=== PATIENT | female | born 1935 | race Asian ===

== ENCOUNTER 2020-03-23 06:52 | Day surgery (SDC) | payer MEDICARE, MEDICAID ==
[2020-03-22 17:22] LABS: BASOPHILS # (AUTO) 0.1 X10'3 (0-0.2); BASOPHILS % (AUTO) 1.1 % (0-1); EOSINOPHILS # (AUTO) 0.3 X10'3 (0-0.9); EOSINOPHILS % (AUTO) 5.9 % (0-6); HEMATOCRIT 37.6 % (35.0-45.0); HEMOGLOBIN 12.4 g/dl (12.0-16.0); LYMPHOCYTES # (AUTO) 1.7 X10'3 (1.1-4.8); LYMPHOCYTES % (AUTO) 35.7 % (21-51); MEAN CORPUSCULAR HGB CONC 33.1 g/dL (33.0-36.5); MEAN CORPUSCULAR VOLUME 93.8 FL (78-98); MEAN PLATELET VOLUME 7.4 FL (7.4-10.4); MONOCYTES # (AUTO) 0.4 X10'3 (0-0.9); MONOCYTES % (AUTO) 8.5 % (2-12); NEUTROPHILS # (AUTO) 2.3 X10'3 (1.8-7.7); NEUTROPHILS % (AUTO) 48.8 % (42-75); PLATELET COUNT 160 X10'3 (140-440); RED BLOOD COUNT 4.01 X10'6 (4.20-5.60); RED CELL DISTRIBUTION WIDTH 13.5 % (11.5-14.5); WHITE BLOOD COUNT 4.8 X10'3 (4.5-11.0)
[2020-03-22 17:29] LABS: ALBUMIN 3.7 G/DL (3.4-5.0); ANION GAP 8 (8-16); BLOOD UREA NITROGEN 15 MG/DL (7-18); BUN/CREATININE RATIO 22.4 (6.6-38.0); CALCIUM 9.2 MG/DL (8.5-10.1); CHLORIDE 106 MMOL/L (99-107); CREATININE 0.67 MG/DL (0.40-0.90); GLUCOSE 165 MG/DL (70-104); POTASSIUM 3.5 MMOL/L (3.5-5.1); SODIUM 140 MMOL/L (135-145); TOTAL CARBON DIOXIDE 26.4 MMOL/L (24-32); eGFR 84 ML/MIN
[2020-03-22 17:34] LABS: PARTIAL THROMBOPLASTIN TIME 28 SECONDS (22-32)
[2020-03-23] VITALS (13 sets, daily range): BP systolic 85–166; BP diastolic 65–83
[~2020-03-23] VITALS: Ht 137.2 cm; Wt 51.3 kg
[2020-03-23] MEDS ORDERED: LORazepam 0.5 MG tablet PO PRN (07:15)
[2020-03-23] MEDS ORDERED: diphenhydrAMINE 25mg capsule PO PRN (07:15)
[2020-03-23] MEDS ORDERED: normal saline 1,000 ML IV SCH (07:15)
[2020-03-23] MEDS ORDERED: LOSA100T57 PO (07:30)
[2020-03-23] MEDS ORDERED: VITA-134 PO (07:30)
[2020-03-23] MEDS ORDERED: CYAN500T63 PO (07:30)
[2020-03-23] MEDS ORDERED: AMLO2.5T2 PO (07:30)
[2020-03-23] MEDS ORDERED: SIMV-45 PO (07:30)
[2020-03-23] MEDS ORDERED: IBUP-2697 PO (07:30)
[2020-03-23] MEDS ORDERED: CALC-1215 PO (07:30)
[2020-03-23] MEDS ORDERED: LORA-512 PO (07:30)
[2020-03-23] MEDS ORDERED: CARV6.253 PO (07:30)
[2020-03-23] MEDS ORDERED: GABA300C PO (07:30)
[2020-03-23] MEDS ORDERED: heparin 1,000unit/ml 10ml vial 10 ML ONE (09:37)
[2020-03-23] MEDS ORDERED: midazolam 2 mg/2 ml injection ONE (09:38)
[2020-03-23] MEDS ORDERED: fentaNYL/PF 50MCG/1 ML 2ML syringe ONE (09:38)
[2020-03-23] MEDS ORDERED: LIDOcaine 1% (10mg/ml)w/preservative injection 20ml MDV ONE (09:38)
[2020-03-23] MEDS ORDERED: nitroGLYCERIN-Tridil 50MG/D5W 250 ML IV ONE (09:38)
[2020-03-23] MEDS ORDERED: iohexol 350 MG/ML 50ML vial IV ONE (10:09)
[2020-03-23] MEDS ORDERED: iohexol 350MG/ML 100ml bottle IV ONE ×2 (10:09→10:40)
[2020-03-23] MEDS ORDERED: heparin 25,000 UNIT/250ml bag 250 ML IV ONE (10:41)
[2020-03-23] MEDS ORDERED: clopidogrel 300mg tablet ONE (11:13)
[2020-03-23] MEDS ORDERED: HYDROcodone/acetaminophen 10/325mg tab PO PRN ×2 (12:20)
[2020-03-23] MEDS ORDERED: acetaminophen 325mg tablet PO PRN ×2 (12:20)
[2020-03-23] MEDS ORDERED: proCHLORperazine 10 MG/2 ml inj IV PRN (12:20)
[2020-03-23] MEDS ORDERED: OXAZEpam 15mg capsule PO PRN (12:20)
[2020-03-23] MEDS ORDERED: cyclobenzaprine 10mg tablet PO PRN (12:20)
[2020-03-23] MEDS ORDERED: magnesium hydroxide 30ml (MOM) UD suspension PO PRN (12:20)
--- NOTE | 2020-03-23 19:14 | NUR ---
Problems reprioritized. Patient report given, questions answered & plan of care reviewed with Peggy JUSTIN.
[2020-03-23] MEDS ORDERED: docusate sod 100mg capsule PO SCH (20:00)
[2020-03-24] MEDS ORDERED: clopidogrel 75mg tablet PO SCH (08:00)
== END 2020-03-23 20:00 | disposition home or self-care (01) ==
LOC: SSTAY O 06:52
PROVIDERS: ATTEND Internal Medicine Cardiovascular Disease
DX: R94.39 Abnormal result of other cardiovascular function study (principal); I25.10 Atherosclerotic heart disease of native coronary artery without angina pectoris; I10 Essential (primary) hypertension; E78.49 Other hyperlipidemia; M19.90 Unspecified osteoarthritis, unspecified site; G62.9 Polyneuropathy, unspecified; Z79.899 Other long term (current) drug therapy; Z98.890 Other specified postprocedural states; Z90.49 Acquired absence of other specified parts of digestive tract; Z82.49 Family history of ischemic heart disease and other diseases of the circulatory system; Z79.01 Long term (current) use of anticoagulants
CPT/HCPCS: 36415; 80048; 85025; 85347; 85610; 85730; 93005; 93458; 99152; 99153; C1725; C1751; C1760; C1769; C1874; C1894; C9600; J1644; J2001; J2250; J3010; J7030; J7040; Q0163; Q9967; A4620; A5120; A6258; J3490

== ENCOUNTER 2021-04-20 11:14 | Day surgery (SDC) | payer MEDICARE, MEDICAID ==
[2021-04-17 17:10] LABS: BASOPHILS % (AUTO) 0.5 % (0-1); EOSINOPHILS # (AUTO) 0.2 X10'3 (0-0.9); EOSINOPHILS % (AUTO) 4.1 % (0-6); LYMPHOCYTES # (AUTO) 1.7 X10'3 (1.1-4.8); MEAN CORPUSCULAR HEMOGLOBIN 31.5 PG (27.0-31.0); MEAN CORPUSCULAR HGB CONC 32.5 g/dL (33.0-36.5); MEAN CORPUSCULAR VOLUME 96.9 FL (78-98); MONOCYTES # (AUTO) 0.3 X10'3 (0-0.9); NEUTROPHILS # (AUTO) 2.1 X10'3 (1.8-7.7); NEUTROPHILS % (AUTO) 48.4 % (42-75); PRE OP HEMATOCRIT 40.8 % (35.0-45.0); PRE OP HEMOGLOBIN 13.3 g/dL (12.0-16.0); PRE OP PLATELET COUNT 157 X10'3 (140-440); RED BLOOD COUNT 4.22 X10'6 (4.20-5.60); RED CELL DISTRIBUTION WIDTH 13.2 % (11.5-14.5)
[2021-04-17 17:25] LABS: PRE OP PROTIME 10.8 SECONDS (9.0-12.0)
[2021-04-17 17:26] LABS: ALKALINE PHOSPHATASE 121 IU/L (46-116); BLOOD UREA NITROGEN 15 MG/DL (7-18); BUN/CREATININE RATIO 16.9 (6.6-38.0); CALCIUM 9.3 MG/DL (8.5-10.1); CHLORIDE 104 MMOL/L (99-107); CREATININE 0.89 MG/DL (0.40-0.90); PRE OP ALT 23 U/L (30-65); PRE OP ANION GAP 9 (8-16); PRE OP AST 18 U/L (10-37); PRE OP BILIRUB, TOTAL 0.4 MG/DL (0.0-1.0); PRE OP GLUCOSE 133 MG/DL (70-104); PRE OP SODIUM 142 MMOL/L (135-145); TOTAL CARBON DIOXIDE 28.7 MMOL/L (24-32); TOTAL PROTEIN 8.2 G/DL (6.4-8.2); eGFR 61 ML/MIN
[~2021-04-20] VITALS: Ht 134.6 cm; Wt 45.0 kg
[2021-04-20] VITALS (21 sets, daily range): BP systolic 106–145; BP diastolic 53–86
[~2021-04-20 11:14] MED LIST: AMLO2.5T2 PO; ASPI-529 PO; ATOR40TA PO; CARV6.253 PO; CLOP75TA15 PO; DOCUMENT DATE & TIME OF BETA-BLOCKER PO ONE; FAMO10TA41 PO; GABA300C PO; LORA-512 PO; LOSA100T57 PO; PREVAGEN PO; TYL650S PO; VANCOMYCIN INJ 1000 MG in NORMAL SALINE 250ml IV.SOLN IV ONE; acetaminophen 325mg tablet PO ONE; cefazolin/dext.iso 2gm/100ml IV ONE; celeCOXIB 100mg capsule PO ONE; famotidine 20mg tablet PO ONE; gabapentin 300mg capsule PO ONE; metoclopramide 5 mg/ml inj IV ONE; oxyCODONE SR 10mg (sust. release) tab -2 tabs (20mg) PO ONE; ringers solution, lacted 1,000 ML IV SCH; tranexamic acid 1gm/0.7% sal. 100 ML IV ONE
[2021-04-20] MEDS ORDERED: ketorolac trometh. 30mg/ml inj. ONE (12:17)
[2021-04-20] MEDS ORDERED: ROPIVAcaine 0.5% (5mg/ml) 30ml vial ONE ×2 (12:18→14:31)
[2021-04-20] MEDS ORDERED: cloNIDine hcl/PF 100mcg/ml inj ONE (12:18)
[2021-04-20] MEDS ORDERED: epiNEPHrine 1 mg/ml inj ONE (12:18)
[2021-04-20] MEDS ORDERED: vancomycin 1,000mg inj ONE ×2 (12:18→13:46)
[2021-04-20] MEDS ORDERED: bisacodyl 10mg suppository rectal RC PRN (12:25)
[2021-04-20] MEDS ORDERED: HYDROmorphone inj. 0.5 MG/0.5 ML DISP.SYRIN IV PRN (12:25)
[2021-04-20] MEDS ORDERED: HYDROmorphone 1 mg/ml syringe IV PRN (12:25)
[2021-04-20] MEDS ORDERED: acetaminophen 325mg tablet PO PRN (12:25)
[2021-04-20] MEDS ORDERED: ondansetron/PF 4mg/2ml inj IV PRN ×2 (12:25→14:40)
[2021-04-20] MEDS ORDERED: diphenhydrAMINE 25mg capsule PO PRN ×2 (12:25)
[2021-04-20] MEDS ORDERED: HYDROcodone/acetaminophen 10/325mg tab PO PRN (12:25)
[2021-04-20] MEDS ORDERED: magnesium hydroxide 30ml (MOM) UD suspension PO PRN (12:25)
[2021-04-20] MEDS ORDERED: tranexamic acid inj. 1,000 MG in normal saline 100ml IV soln 100 ML IV ONE (12:25)
[2021-04-20] MEDS ORDERED: fentaNYL/PF 50MCG/1 ML 2ML syringe ONE (12:36)
[2021-04-20] MEDS ORDERED: midazolam 1 mg/ML 2ml injection ONE (12:36)
[2021-04-20] MEDS: gabapentin 300mg capsule PO SCH ×2 (13:00→20:50)
[2021-04-20] MEDS ORDERED: tranexamic acid 1gm/0.7% sal. 100 ML IV ONE (13:25)
[2021-04-20] MEDS ORDERED: propofol inj 20 ML IV ONE ×2 (13:46)
[2021-04-20] MEDS ORDERED: ePHEDrine 50MG/ML INJ. ONE (13:46)
[2021-04-20] MEDS ORDERED: LIDOcaine 1% (10mg/ml) 2ml vial ONE (13:46)
[2021-04-20] MEDS ORDERED: ROPIVAcaine 0.2% (10 MG/5 ML) BOLUS INJECTION ADDCANAL PRN (14:40)
[2021-04-20] MEDS ORDERED: meperidine/PF 25mg/ml syringe IV PRN (14:40)
[2021-04-20] MEDS ORDERED: ringers solution, lacted 1,000 ML IV SCH (14:40)
[2021-04-20] MEDS ORDERED: proCHLORperazine 10 MG/2 ml inj IV PRN (14:40)
[2021-04-20] MEDS ORDERED: hydrALAZINE 20mg/ml inj. IV PRN (14:40)
[2021-04-20] MEDS ORDERED: HYDROmorphone/PF 0.2 MG/ML SYRINGE IV PRN (14:40)
[2021-04-20] MEDS ORDERED: morphine 2 MG/ML inj. syringe IV PRN (14:40)
[2021-04-20] MEDS ORDERED: labetalol 20mg/4ml (5mg/ml) syringe IV PRN (14:40)
--- NOTE | 2021-04-20 15:08 | NUR ---
Received from OR via SURGICAL BED , accompanied by Anesthesiologist ROSHAN and report given by Anesthesiolgist. TRIPLE LUMEN CENTRAL LINE RIGHT NECK, LR 100ML/HR, LEFT KNEE WRAP, IVANIA VAC, POWDER PACK, POSITIVE DP, SCD'S IN PLACE, VSS. DENIES PAIN AT THIS TIME. SENSATION LEVEL AT L2 2' SPINAL ANESTHESIA. Addendum: 04/20/21 at 1531 by Rafael De La Fuente RN, RN Amended: Links added.
[2021-04-20] MEDS ORDERED: ROPIVAcaine 0.2%/PF PUMP/bolus 545 ML ADDCANAL SCH (15:30)
--- NOTE | 2021-04-20 16:35 | NUR ---
Received pt via bed from recovery, pt awake A&Ox4. mentioned her partial dentures were missing. After phoning recovery it was found that her niece took them home this am. Bed low, call light in reach, VSS. pr denies feeling to above knees from spinal. Advised to use OnQ if she begins to have pain.
--- NOTE | 2021-04-20 16:38 | NUR ---
ALL DC CRITERIA FOR TRANSFER TO THE FLOOR HAS BEEN ACHIEVED. VSS. DENIES PAIN. SPINAL INTACT WELL 3 LUMEN CENTRAL LINE TO RIGHT NECK. VSS AFTER 4 LEAVING THE FLOOR. MARGOTH OBRIEN CALLED REGARDING MISSING "PARTIALS" (DENTURES). PATIENT WAS A SPINAL ANESTHESIA - CALLED OR. SPOKE TO POWER PRESS OPERATOR VALERIE MARTINEZ WHO STATES SHE SPOKE TO THE RN IN THE ROOM AND SHE STATED PATIENT DID NOT HAVE PARTIALS. ROOM CHECKED IN OR AGAIN TO NO AVAIL. CALLED FLOOR. PATIENT INDEED DOES NOT HAVE PARTIALS. WILL CONTACT FLOOR AGAIN. UPON SEVERAL TENSE MOMENTS OF CONFUSION MARGOTH LEUNG STATES THE NIECE HAS HER TEETH. Addendum: 04/20/21 at 1710 by Rafael Underwood - MARGOTH JUSTIN Amended: Links added.
--- NOTE | 2021-04-20 18:24 | NUR ---
Problems reprioritized. Patient report given, questions answered & plan of care reviewed with MARGOTH Hernandez.
--- NOTE | 2021-04-20 18:38 | NUR ---
Patient in room [facility]. I have received report from Екатерина JUSTIN and had the opportunity to ask questions and assume patient care.
--- NOTE | 2021-04-20 18:56 | NUR ---
Problems reprioritized. Patient report given, questions answered & plan of care reviewed with MARGOTH Hernandez.
[2021-04-20] MEDS: ceFAZolin/D5W- 1GM premix 50 ML IV SCH (19:31)
[2021-04-20] MEDS ORDERED: vancomycin/NS 1 GM ADD-VANTAGE 250 ML IV SCH (20:00)
[2021-04-20] MEDS: potassium cl 20mEq in 1/2 NS 1,000 ML IV SCH ×2 (20:25→20:50)
[2021-04-20] MEDS: ascorbic acid 500mg tablet PO SCH (20:50)
[2021-04-20] MEDS: carvedilol 6.25mg tablet PO SCH (20:50)
[2021-04-20] MEDS: sennosides 8.6mg tablet PO SCH (20:52)
[2021-04-21] VITALS (7 sets, daily range): BP systolic 92–148; BP diastolic 47–76
[2021-04-21] MEDS: ceFAZolin/D5W- 1GM premix 50 ML IV SCH (01:44)
[2021-04-21] MEDS: HYDROcodone/acetaminophen 10/325mg tab PO PRN ×2 (03:19→19:30)
[2021-04-21] MEDS: potassium cl 20mEq in 1/2 NS 1,000 ML IV SCH ×3 (05:24→16:46)
[2021-04-21] MEDS ORDERED: acetaminophen 325mg tablet PO PRN (06:00)
[2021-04-21] MEDS ORDERED: traMADol 50MG tablet PO PRN (06:00)
--- NOTE | 2021-04-21 06:16 | NUR ---
Problems reprioritized. Patient report given, questions answered & plan of care reviewed with Tammi JUSTIN.
[2021-04-21 06:30] LABS: BASOPHILS % (AUTO) 0.3 % (0-1); EOSINOPHILS # (AUTO) 0.2 X10'3 (0-0.9); EOSINOPHILS % (AUTO) 2.7 % (0-6); HEMATOCRIT 31.8 % (35.0-45.0); HEMOGLOBIN 10.6 g/dl (12.0-16.0); LYMPHOCYTES # (AUTO) 0.7 X10'3 (1.1-4.8); LYMPHOCYTES % (AUTO) 11.1 % (21-51); MEAN CORPUSCULAR HEMOGLOBIN 31.7 PG (27.0-31.0); MEAN CORPUSCULAR HGB CONC 33.2 g/dL (33.0-36.5); MEAN CORPUSCULAR VOLUME 95.5 FL (78-98); MEAN PLATELET VOLUME 7.4 FL (7.4-10.4); MONOCYTES # (AUTO) 0.4 X10'3 (0-0.9); MONOCYTES % (AUTO) 6.3 % (2-12); NEUTROPHILS # (AUTO) 5.2 X10'3 (1.8-7.7); NEUTROPHILS % (AUTO) 79.6 % (42-75); PLATELET COUNT 129 X10'3 (140-440); RED BLOOD COUNT 3.33 X10'6 (4.20-5.60); RED CELL DISTRIBUTION WIDTH 13.2 % (11.5-14.5); WHITE BLOOD COUNT 6.5 X10'3 (4.5-11.0)
[2021-04-21 07:24] LABS: ANION GAP 7 (8-16); CHLORIDE 104 MMOL/L (99-107); POTASSIUM 3.6 MMOL/L (3.5-5.1); SODIUM 138 MMOL/L (135-145); TOTAL CARBON DIOXIDE 27.3 MMOL/L (24-32)
[2021-04-21] MEDS: carvedilol 6.25mg tablet PO SCH ×2 (08:00→19:55)
[2021-04-21] MEDS: losartan 50mg tablet PO SCH (08:00)
[2021-04-21] MEDS ORDERED: aspirin 81mg tab.chew PO SCH ×2 (08:00→09:03)
[2021-04-21] MEDS: amLODIPine 5mg tablet PO SCH (08:00)
--- NOTE | 2021-04-21 08:20 | NUR ---
patient feeling diaphoretic, nauseous sitting up in chair. very dizzy when putting her back to bed. BP 92/47, 97RA, HR 65, RR 22. Blood glucose 165. Dressing CDI, as patient was sitting in bed, she started to feel better. notified.
[2021-04-21] MEDS ORDERED: normal saline 500ml IV soln 500 ML IV ONE (08:25)
[2021-04-21] MEDS: clopidogrel 75mg tablet PO SCH (08:46)
[2021-04-21] MEDS: loratadine 10mg tablet PO SCH (08:46)
[2021-04-21] MEDS: famotidine 20mg tablet PO SCH (08:47)
[2021-04-21] MEDS: ascorbic acid 500mg tablet PO SCH ×2 (08:47→19:55)
[2021-04-21] MEDS: gabapentin 300mg capsule PO SCH ×3 (08:47→21:41)
[2021-04-21] MEDS: multivitamins, therapeutics tablet PO SCH (08:47)
[2021-04-21] MEDS: atorvastatin 20mg tablet PO SCH (08:47)
--- NOTE | 2021-04-21 16:11 | NUR ---
Joint surgery consult: Pt s/p L knee surgery this admit. Written high protein ed w/ RD contact information mailed to pt home address provided in EMR. Addendum: 04/21/21 at [address] Amended: Links added.
--- NOTE | 2021-04-21 18:46 | NUR ---
Problems reprioritized. Patient report given, questions answered & plan of care reviewed with MARGOTH Hilario.
[2021-04-21] MEDS: celeCOXIB 100mg capsule PO SCH (19:55)
[2021-04-21] MEDS: sennosides 8.6mg tablet PO SCH (21:41)
[2021-04-22] VITALS: BP 130/69
[2021-04-22] MEDS: potassium cl 20mEq in 1/2 NS 1,000 ML IV SCH ×2 (00:21→07:47)
[2021-04-22 06:21] LABS: BASOPHILS % (AUTO) 0.3 % (0-1); EOSINOPHILS # (AUTO) 0.2 X10'3 (0-0.9); EOSINOPHILS % (AUTO) 2.2 % (0-6); HEMATOCRIT 27.3 % (35.0-45.0); HEMOGLOBIN 9.1 g/dl (12.0-16.0); LYMPHOCYTES # (AUTO) 1.5 X10'3 (1.1-4.8); LYMPHOCYTES % (AUTO) 18.6 % (21-51); MEAN CORPUSCULAR HEMOGLOBIN 31.8 PG (27.0-31.0); MEAN CORPUSCULAR HGB CONC 33.3 g/dL (33.0-36.5); MEAN CORPUSCULAR VOLUME 95.6 FL (78-98); MEAN PLATELET VOLUME 7.3 FL (7.4-10.4); MONOCYTES # (AUTO) 0.8 X10'3 (0-0.9); MONOCYTES % (AUTO) 10.1 % (2-12); NEUTROPHILS # (AUTO) 5.7 X10'3 (1.8-7.7); NEUTROPHILS % (AUTO) 68.8 % (42-75); PLATELET COUNT 105 X10'3 (140-440); RED BLOOD COUNT 2.86 X10'6 (4.20-5.60); RED CELL DISTRIBUTION WIDTH 13.1 % (11.5-14.5); WHITE BLOOD COUNT 8.3 X10'3 (4.5-11.0)
--- NOTE | 2021-04-22 06:53 | NUR ---
Patient in room [facility]. I have received report from jessica JUSTIN and had the opportunity to ask questions and assume patient care.
[2021-04-22] MEDS: aspirin 81mg tab.chew PO SCH ×2 (07:44→08:00)
[2021-04-22] MEDS: carvedilol 6.25mg tablet PO SCH (07:44)
[2021-04-22] MEDS: loratadine 10mg tablet PO SCH (07:45)
[2021-04-22] MEDS: losartan 50mg tablet PO SCH (07:45)
[2021-04-22] MEDS: amLODIPine 5mg tablet PO SCH (07:45)
[2021-04-22] MEDS: clopidogrel 75mg tablet PO SCH (07:46)
[2021-04-22] MEDS: multivitamins, therapeutics tablet PO SCH (07:46)
[2021-04-22] MEDS: ascorbic acid 500mg tablet PO SCH (07:46)
[2021-04-22] MEDS: gabapentin 300mg capsule PO SCH (07:46)
[2021-04-22] MEDS: atorvastatin 20mg tablet PO SCH (07:46)
[2021-04-22] MEDS: celeCOXIB 100mg capsule PO SCH (07:46)
[2021-04-22] MEDS: famotidine 20mg tablet PO SCH (07:46)
[2021-04-22 08:00] VITALS: BP 132/70
--- NOTE | 2021-04-22 11:49 | NUR ---
patient seen by Dr Muñoz is ok to DC. IJ removed from right neck intact. All Dc instructions given to patient and yandel Day . patient DC with On-Q pain relief in place and kirk dressing with ice pack. Knee brace sent with patient. To F/U with Dr muñoz in a week. patient DC home via private car with family in stable condition.
== END 2021-04-22 11:58 | disposition home or self-care (01) ==
LOC: PAS 11:14 → SUR 3N 16:35 → PAS 04-22 11:58
PROVIDERS: ATTEND Orthopaedic Surgery
DX: M17.12 Unilateral primary osteoarthritis, left knee (principal); M21.162 Varus deformity, not elsewhere classified, left knee; M76.892 Other specified enthesopathies of left lower limb, excluding foot; M24.562 Contracture, left knee; I10 Essential (primary) hypertension; I25.10 Atherosclerotic heart disease of native coronary artery without angina pectoris; K21.9 Gastro-esophageal reflux disease without esophagitis; G89.18 Other acute postprocedural pain; Z79.899 Other long term (current) drug therapy; Z79.01 Long term (current) use of anticoagulants; Z79.82 Long term (current) use of aspirin; Z98.890 Other specified postprocedural states; Z86.15 Personal history of latent tuberculosis infection; Z95.5 Presence of coronary angioplasty implant and graft; Z20.822 Contact with and (suspected) exposure to COVID-19
CPT/HCPCS: 27447; 36415; 64448; 71045; 73560; 76937; 80051; 80053; 82948; 85025; 85610; 85730; 86885; 86900; 86901; 87081; 97116; 97530; C1713; C1776; J0171; J0690; J0735; J1885; J2001; J2250; J2704; J2765; J2795; J3010; J3370; J7040; U0003; U0005; Z7506; Z7508; Z7512; A4215; A7000; G0378; J3480; J7120

== ENCOUNTER 2022-05-07 08:44 | Outpatient (CLI) | payer MEDICARE, MEDICAID ==
[~2022-05-07 08:44] MED LIST changes: -DOCUMENT DATE & TIME OF BETA-BLOCKER PO ONE; -VANCOMYCIN INJ 1000 MG in NORMAL SALINE 250ml IV.SOLN IV ONE; -acetaminophen 325mg tablet PO ONE; -cefazolin/dext.iso 2gm/100ml IV ONE; -celeCOXIB 100mg capsule PO ONE; -famotidine 20mg tablet PO ONE; -gabapentin 300mg capsule PO ONE; -metoclopramide 5 mg/ml inj IV ONE; -oxyCODONE SR 10mg (sust. release) tab -2 tabs (20mg) PO ONE; -ringers solution, lacted 1,000 ML IV SCH; -tranexamic acid 1gm/0.7% sal. 100 ML IV ONE
== END 2022-05-07 23:59 | disposition home or self-care (01) ==
LOC: RAD 08:44
PROVIDERS: ATTEND Internal Medicine Cardiovascular Disease
DX: I08.8 Other rheumatic multiple valve diseases (principal); R01.1 Cardiac murmur, unspecified
CPT/HCPCS: 93306